=== PATIENT | female | born 1995 | race Caucasian/White ===

== ENCOUNTER → 2018-07-08 | Outpatient (CLI) | payer BC ==
[2018-07-08] VITALS (21 sets, daily range): BP systolic 102–121; BP diastolic 53–81
--- NOTE | 2018-07-08 14:41 | EXE ---
[place] [address] STRESS ECHOCARDIOGRAM Name: RONNY RAMACHANDRAN Room: [facility]#: [id number] Admission: 07/08/18 Attend Phys: Matt Meza, Discharge: Date of : 89 Date of Service: 07/08/18 1441 Report #: [id number] THIS REPORT FOR: //name// APPROVED REPORT Study performed: 07/08/2018 11:38:36 Exam: Stress Echocardiogram Indication: Chest pain , Syncope Patient Location: Out-Patient Stress Nurse: Madison Weir RN Supervising Physician: Roman Garnica MD Status: routine Ht: 5 ft 7 in HR: 78 bpm BP: 115/76 mmHg Procedure The patient underwent an Exercise Stress Test using the Farhan Protocol. Blood pressure, heart rate, and EKG were monitored. An Echocardiogram was performed by desktop technician in four stages in quad fashion. At peak stress, four selected images were obtained and placed side by side with resting images for comparison. Stress Test Details Stress Test: Exercise stress testing was performed using a Farhan protocol. HR Resting HR: 78 bpm Max Heart Rate (APMHR): 198 bpm Max HR Achieved: 197 bpm Target HR (85% APMHR): 168 bpm % of APMHR: 99 Recovery HR: 126 bpm HR response to stress: Normal HR response to stress BP Resting BP: 115/76 mmHg Max BP: 179/68 mmHg Recovery BP: 117/72 mmHg BP response to stress: Normal blood pressure response to stress. ECG Resting ECG: normal Stress ECG: no ischemic [place] [address] STRESS ECHOCARDIOGRAM Name: RONNY RAMACHANDRAN Room: [facility]#: [id number] Admission: 07/08/18 Attend Phys: Matt Meza, Discharge: Date of : 89 Date of Service: 07/08/18 1441 Report #: [id number] Reason for Termination: Completed protocol, Maximal effort Exercise duration: 10 min 12 sec Highest Stage Achieved: Stage 4: 4.2 mph at 16% grade. Exercise capacity: 12.09 METs Pre-Stress Echo The resting Echocardiogram showed normal left ventricular contractility with an estimated Ejection Fraction of about 55-60%. Normal wall motion in all segments on baseline images. Post-Stress Echo The stress Echocardiogram showed normal left ventricular contractility with an estimated Ejection Fraction of about >70%. Normal augmentation of wall motion in all segments on post stress images. Conclusion Clinical Response: Non-ischemic Exercise Capacity: Average Stress ECG Response: Non-ischemic Stress Echo Images: Non-ischemic Other Information Study Quality: Good <ELECTRONICALLY SIGNED> By: Roman Garnica MD, [facility] 07/08/18 144 144 40 Roman Garnica MD, [facility] /INF
--- NOTE | 2018-07-09 16:25 | TST ---
[place] [address] TREADMILL STRESS TEST Name: RONNY RAMACHANDRAN Room: [facility]#: [id number] Admission: 07/08/18 Attend Phys: Matt Meza, Discharge: Date of : 89 Date of Service: 07/08/18 1618 Report #: [id number] THIS REPORT FOR: //name// CC: Tonya Meza MD DATE OF SERVICE: 07/08/2018 The resting values obtained were blood pressure of 111/64 with a heart rate of 77 when the patient was in normal state of consciousness. After tilting, there was no change in symptomatic status or vital signs. Blood pressure was 113/78 with a heart rate of 108. After administration of nitrates with the patient tilted, she developed dizziness, nausea, mild diaphoresis and completely blacked out. The lowest recorded pressure was 115/67, though I doubt that this reflected the true malcolm value. Heart rate edson to 161. The patient was returned to supine position and there was return of normal state of consciousness within 1 minute. She felt completely fatigued and the symptoms were typical to those that she has experienced prior to the tilt table testing associated with her prior episodes of blacking out. Systemic heart rate and blood pressure gradually returned to normal values and remained so through the remainder of the test with a blood pressure of 119/63, heart rate of 95, respirations of 17, and normal consciousness following return to her normal state of consciousness. IMPRESSION: 1. Positive tilt table test for alteration of consciousness after nitrate provocation with nausea, diaphoresis and complete loss of consciousness. 2. The patient experienced significant tachycardia with a heart rate of 161, with the low normal recorded pressure being 115/67, though I doubt that this reflected the malcolm value. <ELECTRONICALLY SIGNED> By: Roman Garnica MD, FACC 07/09/18 1625 1618 1830 Roman Garnica MD, FACC /nt
== END ==
LOC: M.CRD 11:00
DX: R07.9 Chest pain, unspecified (principal); R55 Syncope and collapse